=== PATIENT | male | born 1990 | race Caucasian/White ===

== ENCOUNTER 2017-09-23 17:48 | Emergency (ER) | payer MEDICAID ==
[~2017-09-23] VITALS: Ht 188 cm; Wt 122.7 kg
[2017-09-23 17:56] VITALS: BP 138/87
[2017-09-23] MEDS ORDERED: KETOROLAC 30 MG/1 ML ONE (18:14)
[2017-09-23] MEDS ORDERED: CYCLOBENZAPRINE 10 MG TABLET ONE (18:17)
[2017-09-23] MEDS ORDERED: KETOROLAC 30 MG/1 ML IM ONE (18:30)
[2017-09-23] MEDS ORDERED: CYCLOBENZAPRINE 10 MG TABLET PO ONE (18:30)
[2017-09-23] MEDS ORDERED: PLEASE ENTER ALLERGIES MC SCH (18:30)
== END 2017-09-23 18:54 | disposition home or self-care (01) ==
LOC: ED 18:30
DX: S46.812A Strain of other muscles, fascia and tendons at shoulder and upper arm level, left arm, initial encounter (principal); F95.2 Tourette's disorder; F98.8 Other specified behavioral and emotional disorders with onset usually occurring in childhood and adolescence; X58.XXXA Exposure to other specified factors, initial encounter; Y93.89 Activity, other specified; Y92.89 Other specified places as the place of occurrence of the external cause; Y99.8 Other external cause status
CPT/HCPCS: 99284

== ENCOUNTER 2017-12-23 14:20 | Emergency (ER) | payer MEDICAID ==
[~2017-12-23] VITALS: Ht 190.5 cm; Wt 121.0 kg
[2017-12-23 14:47] LABS: BASOPHILS # (AUTO) 0.02 x10^3/uL (0-0.1); BASOPHILS % (AUTO) 0 % (0-1); EOSINOPHILS # (AUTO) 0.13 x10^3/uL (0-0.4); EOSINOPHILS % (AUTO) 2 % (1-7); LYMPHOCYTES # (AUTO) 1.73 x10^3/uL (1-3.4); LYMPHOCYTES % (AUTO) 22 % (22-44); MD NO; MEAN CORPUSCULAR HEMOGLOBIN 28.9 pg (27.5-34.5); MEAN CORPUSCULAR HGB CONC 33.3 g/dL (33.2-36.2); MEAN CORPUSCULAR VOLUME 86.8 fL (81-97); MEAN PLATELET VOLUME 7.4 fL (7.4-10.4); MONOCYTES # (AUTO) 0.61 x10^3/uL (0.2-0.8); MONOCYTES % (AUTO) 8 % (2-9); NEUTROPHILS % (AUTO) 68 % (42-75); PLATELET COUNT 266 x10^3/uL (130-400); RED BLOOD COUNT 5.84 x10^6/uL (4.38-5.82); RED CELL DISTRIBUTION WIDTH 13.1 % (9.4-14.8)
[2017-12-23 14:58] LABS: ANION GAP 10 mmol/L (5-15); CALCIUM 7.9 mg/dL (8.5-10.1); CHLORIDE 110 mmol/L (98-107); CREATININE 1.14 mg/dL (0.7-1.3)
[2017-12-23 14:59] LABS: ALBUMIN 3.7 g/dL (3.4-5.0)
[2017-12-23 15:00] LABS: INTERNATIONAL NORMALIZED RATIO 0.99 (0.93-1.1); PROTHROMBIN TIME 10.3 Seconds (9.6-11.5)
[2017-12-23 15:02] LABS: TROPONIN I < 0.015 ng/mL (0.000-0.045)
[2017-12-23 15:54] VITALS: BP 132/77
== END 2017-12-23 16:09 | disposition home or self-care (01) ==
LOC: ED 15:19
DX: R07.9 Chest pain, unspecified (principal)
CPT/HCPCS: 36415; 71046; 80048; 82040; 84484; 85025; 85610; 85730; 93005; 99285